=== PATIENT | female | born 1970 | race Caucasian/White ===

== ENCOUNTER 2017-01-18 19:15 | Emergency (ER) | payer BC ==
[~2017-01-18] VITALS: Ht 162.6 cm; Wt 113.4 kg
[~2017-01-18 19:15] MED LIST: ACHYD1T PO; CALC-656 PO; FLC1T PO; HYDR1TAB75 PO; PREN-93 PO
--- NOTE | 2017-01-18 20:58 | Diagnostic Imaging Report ---
INDICATION: Injury, knee pain. EXAMINATION: Right knee at 8:37 p.m. Four views were obtained. FINDINGS: There is no fracture, dislocation or acute bony abnormality evident. There is fairly severe degenerative disease involving all three compartments of the knee joint. The soft tissues are generally unremarkable. There may be a very small joint effusion present. IMPRESSION: 1. There is no evidence for an acute bony abnormality. 2. 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 Dictated by: Dictated on workstation # [id number]
[2017-01-18] MEDS ORDERED: ACETAMINOPHEN 325 MG TABLET/CAPLET (TYLENOL) PO STA (21:01)
--- NOTE | 2017-01-18 21:05 | ED Lower Extremity ---
General Chief Complaint: Lower Extremity Stated Complaint: RT KNEE PAIN Nursing Triage Note: PT AMBULATED TO ROOM WITH CRUTCHES. PT STATES SHE WAS LEAVING HER HOME AND STEPPED WRONG AND HEARD A CRACK IN HER RIGHT KNEE. APPROX. 1830 TODAY. Nursing Sepsis Screen: No Definite Risk History of Present Illness Time seen by provider: 21:00 Initial Comments Evaluation for acute onset of chronic right knee pain. The patient states this evening she was stepping down when she felt a pop in her right knee and had immediate onset of pain. She been using crutches for ambulation. She is aware of chronic arthritis in her knee, sees Dr. [facility] 4 states. Onset: just prior to arrival Pain/Injury Location: right knee Method of Injury: twisted Modifying Factors: Improves With Immobilization Allergies and Home Medications Allergies Coded Allergies: Metoclopramide HCl (Verified Adverse Reaction, Intermediate, AGGITATION, FLUSHING, 06/29/11) Home Medications Calcium Carbonate/Vitamin D3 1 Each Tablet, 1 EACH PO DAILY, (Reported) Folic Acid 1 Mg Tab, 1 EACH PO DAILY, (Reported) Hydrocodone Bit/Acetaminophen 1 Tab Tablet, 1-2 TAB PO NEEDED, #60 (Reported) EVERY 3 HRS. NEEDED FOR PAIN Vit/Fe Fumarate/Fa 1 Each Tablet, 1 EACH PO DAILY, (Reported) Constitutional: no symptoms reported, see HPI EENTM: no symptoms reported, see HPI Respiratory: no symptoms reported, see HPI Cardiovascular: no symptoms reported, see HPI Gastrointestinal: no symptoms reported, see HPI Genitourinary: no symptoms reported, see HPI Musculoskeletal: see HPI, joint pain Skin: no symptoms reported, see HPI Psychiatric/Neurological: No Symptoms Reported, See HPI All Other Systems Reviewed Negative Unless Noted: Yes Past Aspmklu-Jcfzap-Cbhcwd Hx Patient Social History Alcohol Use: Denies Use Recreational Drug Use: No Smoking Status: Never a Smoker 2nd Hand Smoke Exposure: No Recent Foreign Travel: No Contact w/Someone Who Travel: No Recent Infectious Disease Expo: No Recent Hopitalizations: No Immunizations Up To Date Date of Influenza Vaccine: Apr 15, 2010 Seasonal Allergies Seasonal Allergies: No Respiratory Hx Respiratory Disorders: No Cardiovascular Hx Cardiac Disorders: No Cardiac Disorders: Hypertension Neurological Hx Neurological Disorders: No Reproductive System Hx Reproductive Disorders: No Sexually Transmitted Disease: No Genitourinary Hx Genitourinary Disorders: No Gastrointestinal Hx Gastrointestinal Disorders: No Musculoskeletal Hx Musculoskeletal Disorders: No Musculoskeletal Disorders: Arthritis Endocrine Hx Endocrine Disorders: No HEENT HX ENT Disorders: No Blood Transfusions Hx Blood Disorders: No Reviewed Nursing Assessment Reviewed/Agree w Nursing PMH: Yes Physical Exam Vital Signs Vital Sign - Last 12Hours 01/18/17 19:23 Temp 97.9 Pulse 94 Resp 20 B/P (MAP) 168/98 Pulse Ox 95 O2 Delivery Room Air Capillary Refill : Less Than 3 Seconds General Appearance: WD/WN, no apparent distress Cardiovascular: normal peripheral pulses, regular rate, rhythm, no murmur Knees: left knee non-tender, left knee normal inspection, left knee normal range of motion, left knee no evidence of injury, right knee bone tenderness, right knee joint effusion (moderate), right knee pain, right knee soft tissue tenderness, right knee other (range of motion 10-90. Able to perform a straight leg sign. No medial or lateral laxity. Negative anterior, posterior drawer and Aixa. Neurovascular status intact bilateral lower extremity symmetric.) Neurologic/Psychiatric: no motor/sensory deficits, alert, normal mood/affect, oriented x 3 Skin: normal color, warm/dry Progress/Results/Core Measures Results/Orders My Orders Orders - ANTON RUCKER Knee, Right, 3 Views (01/18/17 20:04) Acetaminophen Tablet/Caplet (Tylenol T (01/18/17 21:01) Vital Signs/I&O Vital Sign - Last 12Hours 01/18/17 01/18/17 19:23 21:12 Temp 97.9 97.9 Pulse 94 85 Resp 20 20 B/P (MAP) 168/98 Pulse Ox 95 97 O2 Delivery Room Air Room Air Blood Pressure Mean: 121 Diagnostic Imaging Diagonstic Imaging: Xray Plain Films/CT/US/NM/MRI: knee Comments NAME: [facility] REC#: [id number] PT STATUS: REG ER : 1970 PHYSICIAN: ANTNO RUCKER ADMIT DATE: 01/18/17/ER Draft Date of Exam:01/18/17 KNEE, RIGHT, 3 VIEWS INDICATION: Injury, knee pain. EXAMINATION: Right knee at 8:37 p.m. Four views were obtained. FINDINGS: There is no fracture, dislocation or acute bony abnormality evident. There is fairly severe degenerative disease involving all three compartments of the knee joint. The soft tissues are generally unremarkable. There may be a very small joint effusion present. IMPRESSION: 1. There is no evidence for an acute bony abnormality. 2. 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 Dictated on workstation # [id number] Dict: 01/18/172049 Trans: 01/18/172056 [facility] [id number] Interpreted by: ALEXIA SANTANA MD Electronically signed by: Reviewed: Reviewed by Me Departure Impression Impression: Primary Impression: Sprain of knee Qualified Codes: S83.91XA - Sprain of unspecified site of right knee, initial encounter Disposition: HOME, SELF-CARE Condition: Stable Departure-Patient Inst. Decision time for Depature: 21:00 Referrals: JOSE LOPEZ MD (PCP/Family) Primary Care Physician Patient Instructions: Knee Sprain (DC) Add. Discharge Instructions: Use crutches for ambulation, weightbearing as tolerated. Jacob wrap to right knee. Ice to right knee 20 minutes every 2-3 hours. Continue to use meloxicam for pain, for additional pain is acetaminophen 650 mg every 6 hours. Follow-up with Dr. Brooks. Return to emergency department for new injury, increased pain, or other concerns. All discharge instructions reviewed with patient and/or family. Voiced understanding. Copy Copies To 1: DENIA BROOKS MD, AMY ARNP Jan 18, 2017 21:05
[2017-01-18 21:12] VITALS: BP 169/93
== END 2017-01-18 21:12 | disposition home or self-care (01) ==
LOC: EDUNIT# 19:15 → ER 19:19
DX: S83.91XA Sprain of unspecified site of right knee, initial encounter (principal); M17.9 Osteoarthritis of knee, unspecified; I10 Essential (primary) hypertension; X50.0XXA Overexertion from strenuous movement or load, initial encounter; Y92.009 Unspecified place in unspecified non-institutional (private) residence as the place of occurrence of the external cause
CPT/HCPCS: 73562; 99283

== ENCOUNTER → 2018-09-07 | Outpatient (CLI) | payer BC ==
[~2018-09-07] MED LIST changes: +CATHETER FLUSH 10 ML SYR IV PRN
--- NOTE | 2018-09-07 14:22 | Diagnostic Imaging Report ---
INDICATION: Right upper quadrant pain. TECHNIQUE: Patient was administered 5.4 mCi technetium 99m Choletec intravenously and imaging over the abdomen was performed. At one hour, patient ingested one can of Ensure and gallbladder ejection fraction was calculated. FINDINGS: There is homogeneous uptake of activity by the liver. There is prompt excretion of activity into the common duct and gallbladder. Normal passage of activity into the small bowel is seen. Gallbladder ejection fraction is normal at 56%. IMPRESSION: Normal HIDA scan and gallbladder ejection fraction. Dictated by: Dictated on workstation # [id number]
== END ==
LOC: CARD 11:52
PROVIDERS: ATTEND Family Medicine
DX: R10.11 Right upper quadrant pain (principal)
CPT/HCPCS: 78227

== ENCOUNTER 2021-02-16 19:43 | Emergency (ER) | payer BC ==
[~2021-02-16] VITALS: Ht 162 cm; Wt 123.6 kg
[~2021-02-16 19:43] MED LIST changes: -CATHETER FLUSH 10 ML SYR IV PRN
--- NOTE | 2021-02-16 20:19 | Diagnostic Imaging Report ---
INDICATION: Chest pain. TECHNIQUE: Single view chest 8:16 PM. CORRELATION STUDY: None FINDINGS: The heart size, mediastinal configuration and pulmonary vascularity are within normal limits. The lungs are clear with no consolidating infiltrate. There is no significant effusion or pneumothorax. IMPRESSION: 1. Negative portable chest. Dictated by: Dictated on workstation # [id number]
[2021-02-16 20:47] LABS: BASOPHILS % (AUTO) 0 % (0-10); EOSINOPHILS # (AUTO) 0.1 10^3/uL (0.0-0.3); EOSINOPHILS % (AUTO) 2 % (0-10); HEMATOCRIT 44 % (35-52); HEMOGLOBIN 14.9 g/dL (11.5-16.0); LYMPHOCYTES # (AUTO) 2.6 10^3/uL (1.0-4.0); LYMPHOCYTES % (AUTO) 36 % (12-44); MEAN CORPUSCULAR HEMOGLOBIN 28 pg (25-34); MEAN CORPUSCULAR HGB CONC 34 g/dL (32-36); MEAN CORPUSCULAR VOLUME 83 fL (80-99); MEAN PLATELET VOLUME 8.5 fL (9.0-12.2); MONOCYTES # (AUTO) 0.4 10^3/uL (0.0-1.0); MONOCYTES % (AUTO) 6 % (0-12); NEUTROPHILS # (AUTO) 4.1 10^3/uL (1.8-7.8); NEUTROPHILS % (AUTO) 56 % (42-75); PLATELET COUNT 228 10^3/uL (130-400); WHITE BLOOD COUNT 7.3 10^3/uL (4.3-11.0)
[2021-02-16 20:58] LABS: INR 1.1 (0.8-1.4); PROTHROMBIN TIME PATIENT 14.5 SEC (12.2-14.7)
[2021-02-16 21:07] LABS: ALBUMIN 4.2 GM/DL (3.2-4.5); BILIRUBIN,TOTAL 0.4 MG/DL (0.1-1.0); CALCIUM 9.4 MG/DL (8.5-10.1); CREATININE SERUM 0.87 MG/DL (0.60-1.30); MAGNESIUM 1.9 MG/DL (1.6-2.4); POTASSIUM 3.8 MMOL/L (3.6-5.0); TOTAL PROTEIN 7.4 GM/DL (6.4-8.2)
[2021-02-16] MEDS ORDERED: ACYCLOVIR 400 MG TABLET (ZOVIRAX) PO STA (22:38)
--- NOTE | 2021-02-16 22:50 | ED Chest Pain ---
General Chief Complaint: Chest Pain Stated Complaint: HEART PALP, NECK PAIN Nursing Triage Note: PATIENT REPORTS SHE STARTED HAVING RIGHT CHEST PAIN, RIGHT NECK PAIN AND MID BACK PAIN ON THE NIGHT OF 02/15. PATIENT STATES THAT IT HAS REMAINED PERSISTENT. ALSO REPORTS THAT SHE IS UNDER A LOT OF STRESS RIGHT NOW AND WORRIES THAT IT MAY BE STRESS RELATED. Source: patient Exam Limitations: no limitations Allergies and Home Medications Allergies Coded Allergies: metoclopramide HCl (Verified Adverse Reaction, Intermediate, AGGITATION, FLUSHING, 06/29/11) Home Medications Calcium Carbonate/Vitamin D3 1 Each Tablet, 1 EACH PO DAILY, (Reported) Folic Acid 1 Mg Tab, 1 EACH PO DAILY, (Reported) Hydrocodone Bit/Acetaminophen 1 Tab Tablet, 1-2 TAB PO NEEDED, (Reported) EVERY 3 HRS. NEEDED FOR PAIN Vit/Fe Fumarate/Fa 1 Each Tablet, 1 EACH PO DAILY, (Reported) Valacyclovir HCl 1,000 Mg Tablet, 1,000 MG PO TID Prescribed by: ROSIE MCKEON on 02/16/21 [id number] Past Jtoatjy-Olzwgi-Bkeivf Hx Patient Social History Tobacco Use?: No Use of E-Cig and/or Vaping dev: No Substance use?: No Alcohol Use?: No Pt feels they are or have been: No Immunizations Up To Date Influenza Vaccine Up-to-Date: Yes; Up-to-Date First/Initial COVID19 Vaccinat: 07/06/20 Second COVID19 Vaccination Anibal: 08/06/20 Seasonal Allergies Seasonal Allergies: No Past Medical History Surgeries: Yes (KNEE SURGERY X3, WRIST SURGERY) Respiratory: No Cardiac: Yes Hypertension Neurological: No Reproductive Disorders: No Sexually Transmitted Disease: No Genitourinary: No Gastrointestinal: No Musculoskeletal: Yes Arthritis Endocrine: No HEENT: No Cancer: No Psychosocial: No Integumentary: No Blood Disorders: No Physical Exam Vital Signs Vital Signs - First Documented 02/16/21 02/16/21 02/16/21 02/16/21 20:24 20:25 20:33 23:12 Temp 36.4 Pulse 85 Resp 15 B/P (MAP) 155/71 (99) Pulse Ox 99 O2 Delivery Room Air O2 Flow Rate 2.0 Capillary Refill : Less Than 3 Seconds Height, Weight, BMI Height: 5'4.00" Weight: 250lbs. oz. 113.637375dr; 47.00 BMI Method:Estimated Progress/Results/Core Measures Results/Orders Lab Results Laboratory Tests Test 02/16/21 20:40 02/16/21 21:47 Range/Units White Blood Count 7.3 4.3-11.0 10^3/uL Red Blood Count 5.32 H 3.80-5.11 10^6/uL Hemoglobin 14.9 11.5-16.0 g/dL Hematocrit 44 35-52 % Mean Corpuscular Volume 83 80-99 fL Mean Corpuscular Hemoglobin 28 25-34 pg Mean Corpuscular Hemoglobin Concent 34 32-36 g/dL Red Cell Distribution Width 12.6 10.0-14.5 % Platelet Count 228 130-400 10^3/uL Mean Platelet Volume 8.5 L 9.0-12.2 fL Immature Granulocyte % (Auto) 0 % Neutrophils (%) (Auto) 56 42-75 % Lymphocytes (%) (Auto) 36 12-44 % Monocytes (%) (Auto) 6 0-12 % Eosinophils (%) (Auto) 2 0-10 % Basophils (%) (Auto) 0 0-10 % Neutrophils # (Auto) 4.1 1.8-7.8 10^3/uL Lymphocytes # (Auto) 2.6 1.0-4.0 10^3/uL Monocytes # (Auto) 0.4 0.0-1.0 10^3/uL Eosinophils # (Auto) 0.1 0.0-0.3 10^3/uL Basophils # (Auto) 0.0 0.0-0.1 10^3/uL Immature Granulocyte # (Auto) 0.0 0.0-0.1 10^3/uL Prothrombin Time 14.5 12.2-14.7 SEC INR Comment 1.1 0.8-1.4 Activated Partial Thromboplast Time 28 24-35 SEC Sodium Level 139 135-145 MMOL/L Potassium Level 3.8 3.6-5.0 MMOL/L Chloride Level 105 98-107 MMOL/L Carbon Dioxide Level 24 21-32 MMOL/L Anion Gap 10 5-14 MMOL/L Blood Urea Nitrogen 8 7-18 MG/DL Creatinine 0.87 0.60-1.30 MG/DL Estimat Glomerular Filtration Rate 69 BUN/Creatinine Ratio 9 Glucose Level 174 H 70-105 MG/DL Calcium Level 9.4 8.5-10.1 MG/DL Corrected Calcium 9.2 8.5-10.1 MG/DL Magnesium Level 1.9 1.6-2.4 MG/DL Total Bilirubin 0.4 0.1-1.0 MG/DL Aspartate Amino Transf (AST/SGOT) 15 5-34 U/L Alanine Aminotransferase (ALT/SGPT) 24 0-55 U/L Alkaline Phosphatase 46 40-136 U/L Myoglobin 29.7 10.0-92.0 NG/ML Troponin I < 0.028 < 0.028 <0.028 NG/ML Total Protein 7.4 6.4-8.2 GM/DL Albumin 4.2 3.2-4.5 GM/DL My Orders Orders - ROSIE LAROSE MD Cbc With Automated Diff (02/16/21 19:59) Magnesium (02/16/21 19:59) Chest 1 View, Ap/Pa Only (02/16/21 19:59) Ekg Tracing (02/16/21 19:59) Comprehensive Metabolic Panel (02/16/21 19:59) Myoglobin Serum (02/16/21 19:59) Protime With Inr (02/16/21 19:59) Partial Thromboplastin Time (02/16/21 19:59) O2 (02/16/21 19:59) Monitor-Rhythm Ecg Trace Only (02/16/21 19:59) Ed Iv/Invasive Line Start (02/16/21 19:59) Troponin I (02/16/21 19:59) Troponin I (02/16/21 22:30) Acyclovir Capsule/Tablet (Zovirax Caps (02/16/21 22:38) Aspirin Tablet (Aspirin Tablet) (02/16/21 23:00) Medications Given in ED Current Medications Medications Dose Ordered Sig/Blair Route Start Time Stop Time Status Last Admin Dose Admin Aspirin 325 mg ONCE ONCE PO 02/16/21 23:00 02/16/21 23:01 DC 02/16/21 22:58 325 MG Vital Signs/I&O 02/16/21 02/16/21 02/16/21 02/16/21 20:24 20:25 20:33 23:12 Temp 36.4 37.0 Pulse 85 76 Resp 15 18 B/P (MAP) 155/71 (99) 155/89 Pulse Ox 99 O2 Delivery Room Air Nasal Cannula Room Air O2 Flow Rate 2.0 Blood Pressure Mean: 99 Initial ECG Impression Date: Feb 16, 2021 Initial ECG Impression Time: 19:50 Initial ECG Rate: 85 Initial ECG Rhythm: Normal Sinus Initial ECG Intervals: Normal Comment Sinus rhythm with no ST elevation or depression. No abnormal intervals or axis deviation. Departure Impression Primary Impression: Chest pain Qualified Codes: R07.9 - Chest pain, unspecified Additional Impressions: Palpitation Upper back pain on left side Shingles Qualified Codes: B02.9 - Zoster without complications Disposition: 01 HOME, SELF-CARE Condition: Improved Departure-Patient Inst. Decision time for Depature: 22:49 Referrals: JOSE LOPEZ MD (PCP/Family) Primary Care Physician Patient Instructions: Chest Pain (DC), Shingles Add. Discharge Instructions: Follow-up with your primary care provider as soon as possible. Discuss referral to cardiology for further cardiac evaluation. In the meantime, take aspirin 81 mg daily. Return to the ER if you have worsening symptoms or recurrent episodes of chest pain. Complete your antiviral medication as prescribed. Avoid close contact with immunocompromised people, people under vaccinated for chickenpox, and women while you have active shingles. Cover the shingles when you are around others. Call with questions or concerns. Return to care if you have worsening symptoms. All discharge instructions reviewed with patient and/or family. Voiced understanding. Scripts Valacyclovir HCl (Valacyclovir) 1,000 Mg Tablet 1000 MG PO TID, #21 TAB Prov: ROSIE LAROSE MD 02/16/21 ROSIE LAROSE MD Feb 16, 2021 22:50
[2021-02-16] MEDS ORDERED: VALA10007 PO (22:53)
[2021-02-16] MEDS ORDERED: ASPIRIN 325 MG (5 GR) TABLET PO ONE (23:00)
[2021-02-16 23:12] VITALS: BP 155/89
== END 2021-02-16 23:12 | disposition home or self-care (01) ==
LOC: EDUNIT# 19:43 → ER 19:46
DX: R07.9 Chest pain, unspecified (principal); R00.2 Palpitations; M54.6 Pain in thoracic spine; B02.9 Zoster without complications; I10 Essential (primary) hypertension
CPT/HCPCS: 36415; 71045; 80053; 83735; 83874; 84484; 85025; 85610; 85730; 93005; 93041